=== PATIENT | male | born 1995 | race Caucasian/White ===

== ENCOUNTER 2021-05-25 18:29 | Emergency (ER) | payer SELFPAY ==
[~2021-05-25] VITALS: Ht 175.3 cm; Wt 63.6 kg
[2021-05-25] MEDS ORDERED: BUPRENORPHINE HCL/NALOXONE HCL 8-2 MG SUBLINGUAL TABLET SL ONE (19:45)
[2021-05-25 20:30] VITALS: BP 123/64
== END 2021-05-26 | disposition home or self-care (01) ==
LOC: EMS 18:31
DX: F11.23 Opioid dependence with withdrawal (principal); R11.0 Nausea; F17.210 Nicotine dependence, cigarettes, uncomplicated
CPT/HCPCS: 99281; 99283

== ENCOUNTER 2021-05-29 19:36 | Emergency (ER) | payer MEDICAID ==
[~2021-05-29] VITALS: Ht 175.3 cm; Wt 63.6 kg
[2021-05-29 20:15] VITALS: BP 118/69
== END 2021-05-29 20:20 | disposition home or self-care (01) ==
LOC: EMS 19:47
DX: Z11.1 Encounter for screening for respiratory tuberculosis (principal); F17.210 Nicotine dependence, cigarettes, uncomplicated; F11.90 Opioid use, unspecified, uncomplicated
CPT/HCPCS: 71046; 99283